=== PATIENT | female | born 1960 | race Two or more races ===

== ENCOUNTER 2024-06-11 20:58 | Emergency (ER) | payer OTHER ==
[~2024-06-11] VITALS: Ht 147.3 cm; Wt 85.3 kg
[2024-06-12] MEDS ORDERED: IBUP-1456 PO (00:18)
--- NOTE | 2024-06-12 00:18 | ED.PDOC ---
Musculoskeletal HPI Comments 64-YEAR-OLD FEMALE PRESENTS TO ER WITH COMPLAINTS OF LEFT KNEE PAIN X1 DAY. PATIENT REPORTS SHE STARTED EXPERIENCING LEFT KNEE PAIN AT 6:30 P.M. PRIOR TO ARRIVAL TO ER S/P A CUSTOMER AT WORK HITTING HER IN HER LEFT KNEE WITH AN ELECTRIC SCOOTER. DENIES FALLING DOWN. SHE RATES HER CURRENT PAIN A 9/10 TO LEFT KNEE. DENIES USE OF MEDICATIONS FOR CURRENT SYMPTOMS. SHE IS SHE IS UNABLE TO BEAR WEIGHT ON LEFT LEG DUE TO LEFT KNEE PAIN. DENIES NUMBNESS/TINGLING, SKIN CHANGES, LEFT HIP PAIN, LEFT TIB-FIB PAIN OR ANY FURTHER SYMPTOMS/COMPLAINTS Chief Complaint: Lower Extremity Time Seen by MD: 21:29 Primary Care Provider: UNKNOWN Reviewed Notes: Nurses Notes, Medications, Allergies Allergies: Coded Allergies: Antihistamines, Diphenhydramine-typ (Verified Allergy, Unknown, 06/11/24) Metformin (Verified Allergy, Unknown, 06/11/24) Home Meds Active Scripts Ibuprofen (Ibuprofen) 800 Mg Tab, 1 TAB PO TID PRN, #30 TAB 0 Refills Prov:BALBINA PLEITEZ 06/12/24 Mode of Arrival: Wheelchair Past Medical History PAST MEDICAL HISTORY: DM, High Lipids Surgical History: Appendectomy, Hysterectomy Family History Family History: Unknown Social History Smoker: Non-Smoker Alcohol: Denies ETOH Use Drugs: Denies Drug Use Lives In: Home Constitutional: denies: chills, diaphoresis, fatigue, fever, malaise, sweats, weakness, others EENTM: denies: blurred vision, double vision, ear bleeding, ear discharge, ear drainage, ear pain, ear ringing, eye pain, eye redness, hearing loss, mouth pain, mouth swelling, nasal discharge, nose bleeding, nose congestion, nose pain, photophobia, tearing, throat pain, throat swelling, voice changes, others Respiratory: denies: cough, hemoptysis, orthopnea, SOB at rest, shortness of breath, SOB with excertion, stridor, wheezing, others Cardiovascular: denies: chest pain, dizzy spells, diaphoresis, Dyspnea on exertion, edema, irregular heart beat, left arm pain, lightheadedness, palpitations, PND, syncope, others Gastrointestinal: denies: abdomen distended, abdominal pain, blood streaked bowels, constipated, diarrhea, dysphagia, difficulty swallowing, hematemesis, melena, nausea, poor appetite, poor fluid intake, rectal bleeding, rectal pain, vomiting, others Genitourinary: denies: abnormal vagina bleeding, burning, dyspareunia, dysuria, flank pain, frequency, hematuria, incontinence, pain, , vagina discharge, urgency, others Neurological: denies: dizziness, fainting, headache, left sided numbness, left sided weakness, numbness, paresthesia, pre-existing deficit, right sided numbness, right sided weakness, seizure, speech problems, tingling, tremors, wea kness, others Musculoskeletal: reports: others (As stated in HPI) Integumetry: denies: bruises, change in color, change in hair/nails, dryness, laceration, lesions, lumps, rash, wounds, others Allergic/Immunocompromised: denies: Difficulty Healing, Frequent Infections, Hives, Itching, others Hematologic/Lymphatic: denies: anemia, blood clots, easy bleeding, easy bruising, swollen glands, others Endocrine: denies: excessive hunger, excessive sweating, excessive thirst, excessive urination, flushing, intolerance to cold, intolerance to heat, unexplained weight gain, unexplained weight loss, others Psychiatric: denies: anxiety, bipolar disorder, depression, hopeless, panic disorder, schizophrenia, sleepless, suicidal, others Physical Exam General Appearance: No Apparent Distress, Obese HEENT: PERRL/EOMI Neck: Full Range of Motion, Non-Tender, Normal Respiratory: Chest Non-Tender, Lungs Clear, No Accessory Muscle Use, No Respiratory Distress, Normal Breath Sounds Cardiovascular: No Murmur, No Gallop, Regular Rate/Rhythm Breast Exam: Deferred Gastrointestinal: NOT DONE Genitalia: Deferred Pelvic: Deferred Rectal: Deferred Extremities: Normal capillary refill, Normal range of motion Musculoskeletal : Extremity Location: Knee (TTP/mild swelling to left knee noted. Positive Fran's test left knee. Negative anterior drawer test left knee. Patient able to bear minimal weight on left leg due to pain localized to left knee. No other TTP to left lower extremity appreciated. Pulses intact) Neurologic: Alert, can vacuum tester II-XII nml as Tested, No Motor Deficits, Normal Affect, Normal Mood, No Sensory Deficits Cerebellar Function: Normal Reflexes: Normal Skin: Dry, Normal Color, Warm Peripheral Pulses: 2+ femoral (R), 2+ femoral (L), 2+ dorsalis pedis (R), 2+ dorsalis pedis (L) Lymphatic: No Adenopathy Was a procedure done? Was a procedure done?: No Sedation Sedation?: No Differential Diagnosis EXT Differential Diagnosis: Fracture, Dislocation, Neurovascular injury X-Ray, Labs, Meds, VS Vital Signs Date Time Temp Pulse Resp B/P (MAP) Pulse Ox O2 Delivery O2 Flow Rate FiO2 06/11/24 21:15 98.4 77 18 134/60 (84) 97 Current Medications Medications (Trade) Dose Ordered Sig/Gretel Route Start Time Stop Time Status Last Admin Ketorolac Tromethamine (Toradol Injection) 60 mg ONCE ONCE IM 06/12/24 00:30 06/12/24 00:31 DC 06/12/24 01:06 PATIENT: ISAÍAS NAIKIAACCT: [id number]: [id number] : 1960 LOC: ER ROOM / BED: / AGE / SEX: 64 / F ADM STATUS: REG ER SERVICE ORDERING PHYSICIAN: BALBINA PLEITEZ PROCEDURE(s): LKNE3 - L KNEE 3V XRAY REASON: LEFT KNEE PAIN ORDER NUMBER(s): [id number], ACCESSION NUMBER(s): [id number] XY L KNEE 3V XRAY, INDICATION: LEFT KNEE PAIN TECHNICAL DATA: Single frontal view of the knee. COMPARISON: None Findings/impression: Single frontal view of the knee demonstrates no acute fracture or dislocation. No radiopaque foreign object. ATED BY: LINDA MI DO DICTATED DATE/TIME: 06/12/24105 SIGNED BY: LINDA MI DO SIGNED DATE/TIME: 06/12/24105 CC: Left knee x-ray reviewed Left knee immobilizer applied Toradol 60 mg IM ordered Crutches ordered, patient educated on proper use. Was advised on use at all pat es Advised on rest/no strenuous activity, elevation and alternate ice on/off as needed for pain/swelling Patient neurovascularly intact and reported improvement in symptoms prior to discharge Workman's comp paperwork filled out Advised to follow up with PCP, workman's comp PCP and orthopedics in 1-2 days Patient verbalized understanding and agreeable with current plan of care Advised to return to ER immediately if symptoms worsen Images Reviewed?: Images reviewed and evaluated by me Time of 1ST Reevaluation: 23:44 Reevaluation 1ST: N/A Patient Education/Counseling: Diagnosis, Treatment, Prognosis, Need For Follow Up Family Education/Counseling: No Family Present Departure 1 Departure Time of Disposition: 00:12 Impression: Primary Impression: Left knee sprain Qualified Codes: S83.92XA - Sprain of unspecified site of left knee, initial encounter Disposition: HOME / SELF CARE / HOMELESS Condition: Stable e-Prescriptions Ibuprofen (Ibuprofen) 800 Mg Tab 1 TAB PO TID PRN, #30 TAB 0 Refills Prov: BALBINA PLEITEZ 06/12/24 Discharged With: Friend Critical Care Note Critical Care Time?: No Stability Stability form required: No Heart Score Heart Score: Heart Score Response (Comments) Value History N/A 0 EKG N/A 0 Age N/A 0 Risk Factors N/A 0 Troponin N/A 0 Total 0 BALBINA PLEITEZ Jun 12, 2024 00:18
[2024-06-12] MEDS: KETOROLAC TROMETH 60MG/2ML VIAL IM ONE (01:06)
--- NOTE | 2024-06-12 01:09 | DVH ---
XY L KNEE 3V XRAY, INDICATION: LEFT KNEE PAIN TECHNICAL DATA: Single frontal view of the knee. COMPARISON: None Findings/impression: Single frontal view of the knee demonstrates no acute fracture or dislocation. N o radiopaque foreign object.
[2024-06-12 01:30] VITALS: BP 129/61; PULSE 68; RESP 17; TEMP 97.7; O2SAT 97
== END 2024-06-12 01:50 | disposition home or self-care (01) ==
LOC: ER 20:58
DX: S83.92XA Sprain of unspecified site of left knee, initial encounter (principal); E11.9 Type 2 diabetes mellitus without complications; E78.5 Hyperlipidemia, unspecified; Z90.49 Acquired absence of other specified parts of digestive tract; Z90.710 Acquired absence of both cervix and uterus; Z88.8 Allergy status to other drugs, medicaments and biological substances; Z79.899 Other long term (current) drug therapy; V09.9XXA Pedestrian injured in unspecified transport accident, initial encounter; Y93.89 Activity, other specified; Y92.89 Other specified places as the place of occurrence of the external cause; Y99.0 Civilian activity done for income or pay
CPT/HCPCS: 29505; 73562; 96372; 99283; J1885